=== PATIENT | female | born 1940 | race Caucasian/White ===

== ENCOUNTER 2017-09-15 15:06 | Inpatient (IN) | payer MEDICARE ==
[~2017-09-15 15:06] MED LIST: ISOVUE-370 76%-LOCM 1 ML ONE
[2017-09-15] MEDS ORDERED: Morphine 4 MG/ML VIAL ONE (15:47)
[2017-09-15] MEDS ORDERED: Ondansetron HCl/PF 4 MG/2 ML Vial ONE (15:47)
[2017-09-15 16:01] LABS: #Eosinphils 0.1 thou/uL (0.0-0.7); #Lymphocytes 1.3 thou/uL (1.20-3.40); #Monocytes 1.5 thou/uL (0.11-0.59); #Neutrophils 9.8 thou/uL (1.40-6.50); %Basophils 0.2 % (0.0-1.0); %Eosinophils 0.7 % (0.0-10.0); %Lymphocytes 10.4 % (21.0-51.0); %Monocytes 11.8 % (0.0-10.0); Hematocrit 40.3 % (36.0-47.0); Mean Platelet Volume 7.2 fL (7.4-10.4); White Blood Cell (WBC) Count 12.7 thou/uL (4.8-10.8)
[2017-09-15 16:29] LABS: ALT (SGPT) 13 U/L (8-55); AST (SGOT) 38 U/L (5-34); Alkaline Phosphatase 148 U/L (40-150); Anion Gap 13 mmol/L (10-20); BUN (Urea Nitrogen) 19 mg/dL (9.8-20.1); Bilirubin, Total 0.7 mg/dL (0.2-1.2); Calc. Creatinine Clearance 0 mL/min (70-130); Calcium 10.8 mg/dL (7.8-10.44); Carbon Dioxide 23 mmol/L (23-31); Chloride 104 mmol/L (98-107); Estimated GFR-MDRD 56; Globulin 3.2 g/dL (2.4-3.5); Lipase 5 U/L (8-78); Protein, Total 6.7 g/dL (6.0-8.3)
[2017-09-15 17:03] LABS: Lactic Acid - Sepsis 3.4 mmol/L (0.5-2.2)
--- NOTE | 2017-09-15 17:29 | CT ---
CT ABODMEN AND PELVIS WITH CONTRAST: Date: 09/15/17 HISTORY: Abdominal pain. Small bowel obstruction. COMPARISON: Radiographs same day FINDINGS: There are multiple bilateral lower lobe pulmonary nodules, which are new and enlarging from prior com parison examination, suggestive of progressive metastatic disease. There are innumerable hepatic meta static foci, as well as focus near the suture line of the right and left hepatic lobes. This conglome rate measures 7.2 x 4.8 x 7.7 cm. There is partial near complete occlusion of the intrahepatic inferi or vena cava. There are congestive changes throughout the abdomen and pelvis. There is mild extrahepatic biliary dilatation. There appears to be a biliary hyatt along the right lob e of the liver near the suture line. The portal vein has partial tumor thrombus within it. Kidneys are unremarkable. No hydronephrosis. There are numerous retroperitoneal aortocaval lymph nodes which are enlarging from the comparison exa mination. For example, series 2, image 28, measures up to 1.9 cm, previously measured up to 6.0 mm. There is some soft tissue nodularity along the suture line. Mild fluid within the pelvis. No evidence of small bowel obstruction. IMPRESSION: 1. No evidence for small bowel obstruction. 2. Markedly progressive metastatic disease including numerous pulmonary nodules, as well as a large conglomerate mass near the hepatic suture line. 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 There is subsequent congestive changes throughout the abdo men and pelvis due to partial IVC occlusion. 3. Worsening retroperitoneal periaortic and aortocaval adenopathy. Code: RENEE Arthur POS: [facility]
[2017-09-15] MEDS ORDERED: Ondansetron HCl/PF 4 MG/2 ML Vial IVP PRN ×2 (18:13→19:33)
[2017-09-15] MEDS ORDERED: Acetaminophen 325 MG TAB PO PRN ×2 (18:13→19:33)
[2017-09-15] MEDS ORDERED: Zolpidem Tartrate 5 MG TAB PO PRN (18:13)
[2017-09-15] MEDS ORDERED: Dextrose 50% Abboject 50 ML SYRINGE SLOW IVP PRN (18:26)
[2017-09-15] MEDS ORDERED: Dextrose 5% in Water 1,000 ML IV PRN (18:26)
[2017-09-15] MEDS ORDERED: Insulin Regular 300 UNITS/3 ML VIAL SC PRN (18:26)
[2017-09-15 19:23] LABS: Bilirubin Negative (Negative); Blood, Urine Moderate (Negative); Glucose, Urine (Dipstick) 100 mg/dL (Negative); Ketone, Urine Negative (Negative); Nitrite Negative (Negative); Protein, Urine (Dipstick) Negative (Neg-Trace)
[2017-09-15 19:25] LABS: Bacteria/HPF None Seen HPF (None Seen); Hyaline Casts/LPF 0-3 HYALINE CAST LPF (0-3 Hyaline); Squamous Epithelial 0-3 HPF (0-3); WBC/HPF 0-3 HPF (0-3)
[2017-09-15] MEDS ORDERED: Morphine PF 1 MG/ML SYR IVP PRN (19:33)
[2017-09-15] MEDS ORDERED: Ondansetron ODT 4 MG TAB SL PRN (19:33)
[2017-09-15] MEDS ORDERED: HYDROcodone/Acetaminophen 5/325 mg Tablet PO PRN ×2 (19:33)
[2017-09-15] MEDS ORDERED: Sodium Chloride 0.45% 1,000 ML IV SCH (19:45)
[2017-09-15 20:08] VITALS: BMI 26.0
[2017-09-15] MEDS: Sodium Chloride 0.9% 1,000 ML IV SCH (20:52)
--- NOTE | 2017-09-15 20:52 | HP ---
DATE OF ADMISSION: 09/15/2017 ADMITTING PHYSICIAN: Dr. Dalton Duque. PRIMARY CARE PHYSICIAN: Dr. Olson. PRIMARY ONCOLOGIST: Dr. Ld Bacon. CHIEF COMPLAINT: Abdominal pain. HISTORY OF PRESENT ILLNESS: The patient is a pleasant 76-year-old female with history of colon cance r with metastatic disease. She also has a history of liver cancer with prior chemotherapy. The [facility] ent reports that approximately 2 months ago she began experiencing increased abdominal pain. She als o reports increased problems with constipation. She was seen by her primary care physician and jonii arik approximately 1 month ago, an abdominal film was ordered with follow up CAT scan scheduled. The patient was seen in [place] today with the aforementioned abdominal pain where a small-bowel obs truction was diagnosed per KUB and she was sent here for further evaluation. Abdominal CT here is co nsistent with metastatic disease in her abdomen, but no small-bowel obstruction. The patient denies any other review of systems at this time. REVIEW OF SYSTEMS: The following complete review of systems was negative, unless otherwise mentioned in the HPI or below: Constitutional: Weight loss or gain, sense of well-being, ability to conduct usual activities, exerc ise tolerance. Skin/Breast: Rash, itching, changes in hair growth or loss, nail changes, breast lumps, tenderness, swelling, nipple discharge. Eyes: Vision, double vision, tearing, blind spots, pain. ENT/Mouth: Headaches (location, time of onset, duration, precipitating factors), vertigo, lightheade dness, injury. Vision, double vision, tearing, blind spots, pain, nose bleeding, colds, obstruction, discharge, dental difficulties, gingival bleeding, dentures, neck stiffness, pain, tenderness, masses in thyroid or other areas. Cardiovascular: Precordial pain, substernal distress, palpitations, syncope, dyspnea on exertion, or thopnea, nocturnal paroxysmal dyspnea, edema, cyanosis, hypertension, heart murmurs, varicosities, ph lebitis, claudication. Respiratory: Pain, shortness of breath, wheezing, stridor, cough, hemoptysis, fever or night sweats. Gastrointestinal: Poor appetite, dysphagia, indigestion, abdominal pain, heartburn, eructation, naus ea, vomiting, hematemesis, jaundice, constipation, or diarrhea, abnormal stools (letha-colored, tarry, bloody, greasy, foul smelling), flatulence, hemorrhoids, recent changes in bowel habits. Genitourinary: Urgency, frequency, dysuria, nocturia, hematuria, polyuria, oliguria, unusual (or stan nge in) color of urine, stones, hesitancy, change in size of stream, dribbling, acute retention or in continence, libido, potency. Musculoskeletal: Pain, swelling, redness or heat of muscles or joints, limitation, of motion, muscul ar weakness, atrophy, cramps. Neurologic/Psychiatric: Convulsions, paralyses, tremor, incoordination, paresthesias, difficulties w ith memory of speech, sensory or motor disturbances, or muscular coordination (ataxia, tremor), emoti onal problems, anxiety, depression, previous psychiatric care, unusual perceptions, hallucinations. Allergy/Immunologic: Skin rash, anemia, bleeding tendency, polydipsia, polyuria, intolerance to heat or cold. PAST MEDICAL HISTORY: Significant for colon CA, hepatoma, adrenal cancer. PAST SURGICAL HISTORY: Positive for appendectomy, hysterectomy, partial lobectomy of the liver, inse rtion of a MediPort and bowel resection. PSYCHIATRIC HISTORY: None. SOCIAL HISTORY: The patient denies alcohol, drug or smoking. HOME MEDICATIONS: Xarelto 10 mg q. day. KNOWN DRUG ALLERGIES: LISINOPRIL. FAMILY HISTORY: Reviewed and noncontributory to this case. PHYSICAL EXAMINATION: VITAL SIGNS: Vital statistics, blood pressure 149/64, pulse 84, respirations 20, temperature 98.1. Pain at a level of 7/10, O2 sats 97% on room air. CONSTITUTIONAL: The patient is in no acute distress, nontoxic, pleasant, cooperative. HEAD: Normocephalic, atraumatic. EYES: PERRL. Extraocular muscles intact. ENT: Nasogastric tube is in place to wall suction. NECK: Normal range of motion. Trachea midline. Supple. RESPIRATORY: Clear to auscultation, no rhonchi, no wheezes. CARDIOVASCULAR: Regular rate and rhythm, no murmurs, regurgitation or gallops. ABDOMEN: Mild tenderness in right lower quadrant with deep palpation. Bowel sounds active x4. EXTREMITIES: No clubbing, cyanosis or edema. NEUROLOGIC: Cranial nerves II-XII grossly intact. Alert and oriented x3. SKIN: Warm, dry, normal in color. No rashes. LABORATORY DATA AND IMAGES: Abdominal KUB showed obstruction, constipation, no free air. Abdominal CAT scan shows no small-bowel obstruction, but markedly progressive metastatic disease including nume michelle pulmonary nodules as well as a large conglomerate mass near the hepatic suture line. Also, part ial IVC occlusion and worsening of retroperitoneal periaortic and aortocaval adenopathy. CBC shows a white count of 12.7, hemoglobin 12.9, hematocrit 40.3, MCV of 101.0, platelets 239. BMP shows a sod ium of 136, potassium 4.4, chloride 104, CO2 of 23, BUN 19, creatinine 0.97, glucose 347. Lactic aci d 3.4, calcium 10.8, AST 38, ALT 13, lipase 5, albumin 3.5. ASSESSMENT: 1. Metastatic colon cancer. 2. Lactic acidosis. 3. Hyperglycemia. PLAN: The patient will be admitted to the Oncology unit. We will provide pain control as well as ho ld her n.p.o. The Oncology physician will be consulted and pending their evaluation possibly a surgi venu consult. We will place the patient on sliding scale insulin regimen. Check her capillary blood glucose q.a.c. and at bedtime. Deep venous thrombosis prophylaxis with sequential compression device s, we will hold her Xarelto at this time.
[2017-09-15] MEDS: Famotidine/PF 20 mg/2ml Vial SLOW IVP SCH (20:53)
[2017-09-15] MEDS ORDERED: Activase 2 MG VIAL CATH PRN (20:55)
[2017-09-15] MEDS ORDERED: Sterile Water 10 ML VIAL IVP PRN (20:56)
[2017-09-16] MEDS: Sodium Chloride 0.9% 1,000 ML IV SCH ×2 (05:57→17:30)
[2017-09-16 06:15] LABS: #Basophils 0.1 thou/uL (0.0-0.2); #Eosinphils 0.2 thou/uL (0.0-0.7); #Lymphocytes 2.1 thou/uL (1.20-3.40); #Monocytes 1.6 thou/uL (0.11-0.59); #Neutrophils 7.1 thou/uL (1.40-6.50); %Basophils 0.9 % (0.0-1.0); %Eosinophils 1.5 % (0.0-10.0); %Lymphocytes 19.1 % (21.0-51.0); %Monocytes 14.2 % (0.0-10.0); Hematocrit 37.4 % (36.0-47.0); Mean Platelet Volume 6.7 fL (7.4-10.4)
[2017-09-16 06:43] LABS: Anion Gap 11 mmol/L (10-20); BUN (Urea Nitrogen) 16 mg/dL (9.8-20.1); Calc. Creatinine Clearance 61 mL/min (70-130); Calcium 11.2 mg/dL (7.8-10.44); Carbon Dioxide 27 mmol/L (23-31); Chloride 107 mmol/L (98-107); Estimated GFR-MDRD 67
[2017-09-16] MEDS: Famotidine/PF 20 mg/2ml Vial SLOW IVP SCH ×2 (08:07→20:30)
--- NOTE | 2017-09-16 10:35 | PDOC.PN ---
- Subjective Encounter Start Date: 09/16/17 Encounter Start Time: 10:15 Subjective: abd pain is better, no sob -: feels better, last bm was 2 days back -: no nausea or vomiting now - Objective MAR Reviewed: Yes Vital Signs & Weight: Vital Signs (12 hours) Temp Pulse Resp BP Pulse Ox 09/16/17 08:14 98.5 F 75 18 133/62 97 09/16/17 05:00 98.5 F 84 17 145/73 H 96 09/15/17 23:56 98.6 F 68 15 139/62 99 Weight Weight 147 lb I&O: 09/15/17 09/16/17 09/17/17 06:59 06:59 06:59 Intake Total 750 Output Total 200 Balance 550 Result Diagrams: 09/16/17 06:03 09/16/17 06:03 Additional Labs: Accuchecks 09/16/17 09/15/17 06:02 20:37 POC Glucose 117 H 117 H Phys Exam - Physical Examination HEENT: PERRLA, moist MMs Neck: no JVD, supple Respiratory: no wheezing, no rales Cardiovascular: RRR, no significant murmur Gastrointestinal: soft, positive bowel sounds abd wall edema+ Musculoskeletal: no edema, pulses present Neurological: non-focal, moves all 4 limbs Psychiatric: A&O x 3 Dx/Plan (1) colon cancer with mets Status: Acute (2) IVC obstruction Code(s): I87.1 - COMPRESSION OF VEIN Status: Acute Comment: sec to lymph nodes near jessica (3) H/O malignant hepatoma Code(s): Z85.05 - PERSONAL HISTORY OF MALIGNANT NEOPLASM OF LIVER Status: Chronic Comment: with prior lobectomy/resection (4) H/O deep venous thrombosis Code(s): Z86.718 - PERSONAL HISTORY OF OTHER VENOUS THROMBOSIS AND EMBOLISM Status: Chronic - Plan poor prognosis -: await onc advice -: remove ng tube, start full liq diet and advance as tolerated -: to amb in hallway as tolerated -: gentle iv hydration, suggest continue xarelto in view of current ivc obstr * . Review of Systems - Medications/Allergies Allergies/Adverse Reactions: Allergies Allergy/AdvReac Type Severity Reaction Status Date / Time lisinopril Allergy Verified 09/15/17 20:06 Medications: Current Medications Acetaminophen (Tylenol) 650 mg PO Q4H PRN PRN Reason: Headache/Fever or Pain Alteplase, Recombinant (Cathflo) 2 mg CATH ONE PRN PRN Reason: .to access Mediport Stop: 09/16/17 20:56 Dextrose/Water (Dextrose 50%) 25 gm SLOW IVP PRN PRN PRN Reason: Hypoglycemia Famotidine (Pepcid) 20 mg SLOW IVP Q12HR [facility] Last Admin: 09/16/17 08:07 Dose: 20 mg Glucagon (Glucagon) 1 mg IM PRN PRN PRN Reason: Hypoglycemia Sodium Chloride (Normal Saline 0.9%) 1,000 mls @ 75 mls/hr IV .[id number] [facility] Last Admin: 09/16/17 05:57 Dose: 1,000 mls Dextrose/Water (D5w) 1,000 mls @ 0 mls/hr IV .Q0M PRN; As Directed PRN Reason: Hypoglycemia Insulin Human Regular (Humulin R) 0 units SC .MILD SLIDING SCALE PRN PRN Reason: Mild Correctional Scale Lactulose (Lactulose) 20 gm PO DAILYPRN PRN PRN Reason: Constipation Ondansetron HCl (Zofran) 4 mg IVP Q6H PRN PRN Reason: Nausea/Vomiting Sodium Chloride (Flush - Normal Saline) 10 ml IVF Q12HR [facility] Last Admin: 09/16/17 08:08 Dose: 10 ml Sodium Chloride (Flush - Normal Saline) 10 ml IVF PRN PRN PRN Reason: Saline Flush Sterile Water (Water For Injection) 20 ml IVP ONE PRN PRN Reason: FOR CATHFLO RECONSTITUTION Stop: 09/16/17 20:57 Zolpidem Tartrate (Ambien) 5 mg PO HSPRN PRN PRN Reason: Insomnia
--- NOTE | 2017-09-16 14:59 | CON ---
DATE OF CONSULTATION: 09/16/2017 REASON FOR CONSULTATION: Metastatic colon cancer. HISTORY OF PRESENT ILLNESS: Ms. Ramsay is a 76-year-old female who was diagnosed with colon cancer with liver and splenic mets in 2011. Over the past several years, she has undergone several chemotherapy regimens as well and has surgical interventions including a sigmoid resection in 2011 of the transverse colon; colostomy for pelvic abscess in 2011; right hepatectomy and splenectomy for metastasis. Most recently, she had an MWA of her right adrenal met. This was done by Dr. Zabala at [facility] in [place] in 04/2017. She has not followed up with Dr. Bacon since that time. Over the past month, she has had a decrease in appetite and increasing right-sided abdominal discomfort. The pain was unrelenting over the last few days, so she presented to the emergency room for evaluation. In the emergency room, she had a CT scan of her abdomen and pelvis that showed multiple bilateral lower lobe pulmonary nodules which were new from her prior exam. She had innumerable hepatic metastatic lesions including a conglomerate near the suture line measuring 7.2 x 4.8 x 7.7. There was partial obstruction of the IVC. She also had some retroperitoneal periaortic and aortocaval lymphadenopathy. There was no evidence of bowel obstruction. The patient did have an NG tube placed and was admitted for further treatment and evaluation. She was given morphine for pain control. The patient admits to approximately 10 pound weight loss over the past month with decreasing appetite. No neurological changes. No chest pain or shortness of breath. She denies any lower extremity swelling. PAST MEDICAL HISTORY: 1. Metastatic adenocarcinoma of the colon. 2. Pelvic DVT in 01/2015. 3. Diabetes mellitus 2. 4. Primary hyperparathyroidism. PAST SURGICAL HISTORY: 1. Hysterectomy. 2. Cholecystectomy. 3. Microwave ablation of adrenal metastasis. 4. Partial right hepatectomy. 5. Splenectomy. ALLERGIES: No known drug allergies. HOME MEDICATION: Xarelto 20 mg daily. FAMILY HISTORY: Lung cancer. SOCIAL HISTORY: Single, no children. Lives with her brother and nephew. No alcohol, tobacco or illicit drug use. REVIEW OF SYSTEMS: A 12 point review of systems is negative except for noted in HPI. PHYSICAL EXAMINATION: VITAL SIGNS: Temperature is 98.5, pulse is 75, respiratory rate 18, blood pressure is 133/62. She is 97% on room air. GENERAL: Well-developed and well-nourished female in no acute distress. HEENT: Normocephalic, atraumatic. Pupils are equal and reactive to light. NECK: Supple. CARDIOVASCULAR: Regular rate and rhythm. She has 2/6 murmur. LUNGS: Clear to auscultation. ABDOMEN: Soft, mildly tender to palpation in the right upper quadrant. She has an NG tube in place to low intermittent wall suction. SKIN: There are no rashes. HEMATOLOGICAL: There is no petechia or purpura. EXTREMITIES: No clubbing, cyanosis or edema. NEUROLOGICAL: Nonfocal. PSYCHIATRIC: The patient is alert and oriented and appropriate. PERTINENT LABORATORY DATA AND X-RAYS: Current WBCs are 11, hemoglobin is 12, hematocrit 37.4, and platelet count is 265,000. Neutrophils 65%, lymphocytes 20 %, and monocytes 15%. Sodium is 140, potassium 4.5, chloride 107, CO2 is 27, BUN is 16, creatinine 0.83, lactic acid is 1.1, calcium 11.2, magnesium is 2, total bilirubin is 0.7, AST is 38, ALT is 13, alkaline phosphatase is 148, serum total protein 6.7, albumin 2.5, globulin 3.2, lipase is 5. Radiology per HPI. ASSESSMENT: 1. Colon cancer with new metastasis in the liver and lung. 2. Primary hyperparathyroidism with elevated calcium. 3. Abdominal pain secondary to #1. PLAN: Patient's pain is currently controlled with morphine. We will adjust her pain medications as needed. Her NG tube is in place and will hopefully be removed today and she will be trialed on oral intake. She needs to resume her Xarelto. As the NG tube does not come out today, we will have to begin Lovenox. She has taken chemotherapy in the past and is a candidate for chemotherapy again, particularly in the setting of IVC occlusion as it may shrink the liver lesion to provide better flow. This case has been discussed with Dr. Bacon. Thank you for the consult. JOSE
[2017-09-16] MEDS: Rivaroxaban 10 MG TAB PO SCH (17:30)
[2017-09-16] MEDS ORDERED: Morphine 4 MG/ML VIAL SLOW IVP PRN (21:04)
[2017-09-16] MEDS: traMADol HCl 50 MG TAB PO PRN (23:14)
[2017-09-17] MEDS: Sodium Chloride 0.9% 1,000 ML IV SCH ×2 (06:35→21:03)
[2017-09-17] MEDS ORDERED: Bisacodyl 10 MG SUPP PR PRN (07:59)
--- NOTE | 2017-09-17 08:26 | PDOC.PN ---
- Subjective Encounter Start Date: 09/17/17 Encounter Start Time: 08:30 Subjective: is awake and oriented now -: was confused apparently last night ?morphine - Objective MAR Reviewed: Yes Vital Signs & Weight: Vital Signs (12 hours) Temp Pulse Resp BP Pulse Ox 09/17/17 08:20 98.1 F 85 16 135/64 94 L 09/17/17 08:00 98.8 F 88 20 94 L Weight Weight 147 lb I&O: 09/16/17 09/17/17 09/18/17 06:59 06:59 06:59 Intake Total 750 2600 Output Total 200 Balance 550 2600 Result Diagrams: 09/16/17 06:03 09/16/17 06:03 Additional Labs: Accuchecks 09/17/17 09/16/17 09/16/17 06:32 23:09 16:11 POC Glucose 79 97 124 H 09/16/17 11:52 POC Glucose 90 Phys Exam - Physical Examination HEENT: PERRLA, sclera anicteric Neck: no JVD, supple Respiratory: no wheezing, no rales Cardiovascular: RRR, no significant murmur Gastrointestinal: soft, no distention, positive bowel sounds Musculoskeletal: no edema, pulses present Neurological: non-focal, moves all 4 limbs Psychiatric: A&O x 3 Dx/Plan (1) colon cancer with mets Status: Acute (2) IVC obstruction Code(s): I87.1 - COMPRESSION OF VEIN Status: Acute Comment: sec to lymph nodes near jessica (3) H/O malignant hepatoma Code(s): Z85.05 - PERSONAL HISTORY OF MALIGNANT NEOPLASM OF LIVER Status: Chronic Comment: with prior lobectomy/resection (4) H/O deep venous thrombosis Code(s): Z86.718 - PERSONAL HISTORY OF OTHER VENOUS THROMBOSIS AND EMBOLISM Status: Chronic - Plan is started back on xarelto due to increase risk of dvt with IVC compression -: for palliative chemo after onc discusses with her nephew -: dc plan in am -: tolerating liq diet, advance as tolerated to solid diet -: dc morphine ?sensitive to it, ultram, norco prn * . Review of Systems - Medications/Allergies Allergies/Adverse Reactions: Allergies Allergy/AdvReac Type Severity Reaction Status Date / Time lisinopril Allergy Verified 09/15/17 20:06 Medications: Current Medications Acetaminophen (Tylenol) 650 mg PO Q4H PRN PRN Reason: Headache/Fever or Pain Bisacodyl (Dulcolax) 10 mg FL ONE PRN PRN Reason: Constipation Stop: 09/17/17 12:00 Dextrose/Water (Dextrose 50%) 25 gm SLOW IVP PRN PRN PRN Reason: Hypoglycemia Famotidine (Pepcid) 20 mg PO BID JULIA Glucagon (Glucagon) 1 mg IM PRN PRN PRN Reason: Hypoglycemia Sodium Chloride (Normal Saline 0.9%) 1,000 mls @ 75 mls/hr IV .[id number] [facility] Last Admin: 09/17/17 06:35 Dose: 1,000 mls Dextrose/Water (D5w) 1,000 mls @ 0 mls/hr IV .Q0M PRN; As Directed PRN Reason: Hypoglycemia Insulin Human Regular (Humulin R) 0 units SC .MILD SLIDING SCALE PRN PRN Reason: Mild Correctional Scale Lactulose (Lactulose) 20 gm PO DAILYPRN PRN PRN Reason: Constipation Ondansetron HCl (Zofran) 4 mg IVP Q6H PRN PRN Reason: Nausea/Vomiting Rivaroxaban (Xarelto) 20 mg PO 1700 JUL[facility] Last Admin: 09/16/17 17:30 Dose: 20 mg Sodium Chloride (Flush - Normal Saline) 10 ml IVF Q12HR [facility] Last Admin: 09/16/17 20:31 Dose: 10 ml Sodium Chloride (Flush - Normal Saline) 10 ml IVF PRN PRN PRN Reason: Saline Flush Tramadol HCl (Ultram) 50 mg PO Q6H PRN PRN Reason: Pain Last Admin: 09/16/17 23:14 Dose: 50 mg Zolpidem Tartrate (Ambien) 5 mg PO HSPRN PRN PRN Reason: Insomnia
[2017-09-17] MEDS: Famotidine 20 MG TAB PO SCH ×2 (08:44→21:04)
[2017-09-17] MEDS: Rivaroxaban 10 MG TAB PO SCH (17:03)
[2017-09-17] MEDS: traMADol HCl 50 MG TAB PO PRN (21:12)
[2017-09-18 08:21] VITALS: BP 126/61; TEMP 98.7
[2017-09-18] MEDS: Famotidine 20 MG TAB PO SCH (09:53)
--- NOTE | 2017-09-18 12:32 | PDOC.PN ---
- Subjective Encounter Start Date: 09/18/17 Encounter Start Time: 12:31 Ms. Ramsay was seen today in follow-up of abdominal pain. she says her pain is better controlled. She has not asked for any Ultram today. - Objective MAR Reviewed: Yes Vital Signs & Weight: Vital Signs (12 hours) Temp Pulse Resp BP Pulse Ox 09/18/17 08:00 98.7 F 88 22 H 98 09/18/17 07:20 98.7 F 88 22 H 126/61 98 Weight Weight 147 lb I&O: 09/17/17 09/18/17 09/19/17 06:59 06:59 06:59 Intake Total 2600 4600 Balance 2600 4600 Result Diagrams: 09/16/17 06:03 09/16/17 06:03 Additional Labs: Accuchecks 09/18/17 09/18/17 09/17/17 11:23 05:28 20:26 POC Glucose 99 90 98 09/17/17 15:46 POC Glucose 104 Phys Exam - Physical Examination HEENT: PERRLA Respiratory: no wheezing, no rales, no rhonchi, clear to auscultation bilateral Cardiovascular: RRR, no significant murmur Gastrointestinal: soft, non-tender, positive bowel sounds Musculoskeletal: no edema Dx/Plan (1) Abdominal pain Code(s): R10.9 - UNSPECIFIED ABDOMINAL PAIN Status: Acute (2) colon cancer with mets Status: Acute - Plan * . Abdominal pain due to metastatic colon cancer- this is much better controlled Oncology recommendations notes- Will discharge home
--- NOTE | 2017-09-18 13:43 | DIS ---
DATE OF ADMISSION: 09/15/2017 DATE OF DISCHARGE: 09/18/2017 PRIMARY CARE PHYSICIAN: Dr. Olson. DISCHARGE DISPOSITION: Home. PRIMARY DISCHARGE DIAGNOSES: 1. Abdominal pain secondary to metastatic colon cancer. 2. Metastatic colon cancer. 3. History of adrenal cancer. 4. Hypertension. 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 DISCHARGE MEDICATIONS: Include Xarelto 20 mg daily, as well as Tramadol 50 mg q.6 hours as needed. PROCEDURES DONE DURING ADMISSION: The patient had a CT scan of the abdomen and pelvis, which demonst rated no small-bowel obstruction, but there was marked progression of the metastatic disease includin g numerous pulmonary nodules as well as a large conglomerate mass near the hepatic suture line measur ing 4.8 x 7.2 cm with near complete occlusion of the intrahepatic inferior vena cava. There is worse ynes retroperitoneal and periaortic and aortocaval adenopathy. CODE STATUS: FULL CODE. ALLERGIES: LISINOPRIL. HOSPITAL COURSE: Ms. Ramsay is a pleasant 76-year-old female that was admitted due to severe abdomin al pain. She has a known history of metastatic colon cancer. It was suspected that she might have a small-bowel obstruction; however, CT scan demonstrated progression of the disease of her colon cance r, but no evidence of obstruction. She was stabilized with regards to pain control during her hospit al stay and was evaluated by Oncology. Discussions were made whether or not to begin chemotherapy pa lliative in the outpatient setting. The patient will discuss this with her nephew and she will be di scharged home and have close followup with Dr. Bacon to discuss further treatment options, she will be discharged on tramadol for pain and Xarelto, which was started by Oncology for the occluded infer ior vena cava.
== END 2017-09-18 14:46 | disposition home or self-care (01) | DRG 374 ==
LOC: ERS 15:06 → ONC 18:00
PROVIDERS: ADMIT Internal Medicine Addiction Medicine; ATTEND Internal Medicine Addiction Medicine
DX: C18.3 Malignant neoplasm of hepatic flexure (principal); I82.220 Acute embolism and thrombosis of inferior vena cava; C78.01 Secondary malignant neoplasm of right lung; C78.02 Secondary malignant neoplasm of left lung; E87.2 Acidosis; C77.2 Secondary and unspecified malignant neoplasm of intra-abdominal lymph nodes; C77.1 Secondary and unspecified malignant neoplasm of intrathoracic lymph nodes; C78.7 Secondary malignant neoplasm of liver and intrahepatic bile duct; E83.52 Hypercalcemia; E11.9 Type 2 diabetes mellitus without complications
CPT/HCPCS: 36415; 36416; 74177; 80048; 83605; 83690; 83735; 85025; A4216; J1642; J2270; J2405; S0028